=== PATIENT | female | born 1950 | race Caucasian/White ===

== ENCOUNTER → 2023-10-09 | Outpatient (CLI) | payer SELFPAY ==
[~2023-10-09] MED LIST: IOHEXOL 350 MG/ML 100ML INFUS..BTL IV ONE; METOPROLOL TARTRATE 1 MG/ML 5ML VIAL IV ONE
== END | disposition home or self-care (01) ==
LOC: RAH 10:43
PROVIDERS: ATTEND Student in an Organized Health Care Education/Training Program
DX: I44.7 Left bundle-branch block, unspecified (principal)
CPT/HCPCS: 75574; J3490; Q9967